=== PATIENT | male | born 1945 | race Caucasian/White ===

== ENCOUNTER 2017-04-03 05:25 | Emergency (ER) | payer MEDICARE ==
--- NOTE | 2017-04-03 06:03 | ED Physician Documentation ---
General Adult - HISTORIAN Historian: patient, other (family members) - HPI Stated Complaint: L sided weakness, L facial droop Chief Complaint: General Adult Onset: hours Timing: better Severity: mild Further Comments: yes (Pt is a 71 yo male with hx IDDM, who developed L sided weakness, unsteady gate, slurred speech, and L facial droop shortly after awakening this am. Sx were first noticed at 5:00 am. Upon arrival in ER at 5: 25 am, sx had resolved and pt stated that he was feeling perfectly well. At 5: 55 am in ER, facial droop and slightly slurred speech recurred.) - ROS CONST: no problems EYES/ENT: none CVS/RESP: none GI/: none MS/SKIN/LYMPH: none NEURO/PSYCH: other (L-sided weakness; L facial droop; difficulty with balance) - PAST HX Past History: other (IDDM, HLD) Surgeries/Procedures: other (hiatal hernia, ortho surgery) Allergies/Adverse Reactions: Allergies Allergy/AdvReac Type Severity Reaction Status Date / Time Penicillins AdvReac Nausea/Vomi Verified 04/03/17 06:08 ting Home Medications: Ambulatory Orders Medication Instructions Recorded Aspirin [Adult Low Dose Aspirin EC] 81 mg PO D 04/03/17 Atorvastatin Calcium [Atorvastatin 80 mg PO D 04/03/17 Calcium] Atorvastatin Calcium [Lipitor] 40 mg PO D 04/03/17 Ibuprofen [Advil] 200 mg PO D 04/03/17 Indapamide [Indapamide] 2.5 mg PO D 04/03/17 Insulin Detemir [Levemir Flextouch] 100 units SQ DIRECTED 04/03/17 Metformin HCl [Glucophage] 500 mg PO BID 04/03/17 Olmesartan/Hydrochlorothiazide 1 tab PO D 04/03/17 [Benicar Hct 40-12.5 mg Tablet] Omeprazole [Prilosec] 20 mg PO D 04/03/17 - SOCIAL HX Smoking History: non-smoker Alcohol Use: occasionally - FAMILY HX Family History: No - REVIEWED ASSESSMENTS Nursing Assessment Reviewed: Yes Vitals Reviewed: Yes Progress - Progress Progress: Finger stick glucose = 237 CT brain w/o contrast: Scattered bilateral white matter hypodensity is present , consistent with gliosis. Old bilateral basal ganglia lacunar infarcts noted. Mild cerebral atrophy is present. The lateral ventricles are mildly dilated. No hemorrhage or edema-producing mass. The fourth ventricle is midline. The paranasal sinuses are clear. No skull fracture. The mastoid air cells are well developed and well aerated. Impression: 1. Mild cerebral atrophy, white matter gliosis, an old bilateral basal ganglia lacunar infarcts noted. 2. No acute cerebral pathology. Transfer to [facility], Dr. Camacho. - EKG/XRAY/CT EKG: NSR (HR=80; normal EKG) ED Results Lab/Radiology - Orders Orders: ED Orders Category Date Time Status CHEST P.A.&LAT 2 VIEWS [RAD] Stat Exams 04/03/[address] BRAIN W/O CONTRAST Stat Exams 04/03/17 Ordered CBC/PLATELET/DIFF Routine Lab 04/03/17 Ordered CMP Routine Lab 04/03/17 Ordered CREATINE KINASE Routine Lab 04/03/17 Ordered PT-INR Routine Lab 04/03/17 Ordered PTT Routine Lab 04/03/17 Ordered TROPONIN I (cTnI) Stat Lab 04/03/17 Ordered EKG WITH COMPARISON Stat Ther 04/03/17 Ordered General Adult Physical Exam - PHYSICAL EXAM GENERAL APPEARANCE: no distress EENT: eye inspection normal, pharynx normal NECK: normal inspection, supple RESPIRATORY: no resp distress, chest non-tender, breath sounds normal CVS: reg rate & rhythm, heart sounds normal ABDOMEN: soft, no organomegaly, normal bowel sounds BACK: normal inspection, no CVA tenderness SKIN: warm/dry, normal color EXTREMITIES: non-tender, normal range of motion, no evidence of injury NEURO: oriented X3, motor nml, sensation nml, speech/cognition abnml (slightly slurred speech), facial droop (Left) Discharge Clincal Impression: CVA/TIA Condition: Stable Disposition: 02 XFER SHT-TRM HOSP Decision to Admit: NO Decision Time: 06:35
--- NOTE | 2017-04-03 06:23 | Diagnostic Imaging Report ---
[facility] [address] [facility].[address] 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 Findings: Scattered bilateral white matter hypodensity is present, consistent with gliosis. Old bilateral basal ganglia lacunar infarcts noted. Mild cerebral atrophy is present. The lateral ventricles are mildly dilated. No hemorrhage or edema-producing mass. The fourth ventricle is midline. The paranasal sinuses are clear. No skull fracture. The mastoid air cells are well developed and well aerated. Impression: 1. Mild cerebral atrophy , white matter gliosis, an old bilateral basal ganglia lacunar infarcts noted. 2. No acute cerebral pathology. Findings discussed with Dr. Moise in the ER at 0619 hrs central standard time. Electronically signed on Apr 03, 2017 6:19:10 AM SADDLE STITCHING MACHINE OPERATOR by: Merrill BHATIA
--- NOTE | 2017-04-03 06:31 | Diagnostic Imaging Report ---
[facility] [address] [facility].[address] [address] Report Submission Date: Apr 03, 2017 6:23:53 AM RAPID OUTSOLE STITCHER Patient Study Name: JENISE PATRICIA Date: Apr 03, 2017 6:13:49 AM RAPID OUTSOLE STITCHER Modality Type: CR Gender: M Description: CHEST : 47 Institution: [facility] Physician: LORA MOISE Chest, 2 view History: SLURRED SPEECH AND LEFT SIDED FACIAL DROOP Findings: The heart size is normal. There is atherosclerosis of the aorta. The lungs are clear. There is no pleural effusion or pneumothorax identified. The osseous structures are normal. Impression: 1. No acute pulmonary disease. Electronically signed on Apr 03, 2017 6:23:53 AM RAPID OUTSOLE STITCHER by: Merrill BHATIA
[2017-04-03 06:45] LABS: BASOPHILS % 0.6 (0.0-1.5); EOSINOPHILS % 4.8 % (0.0-6.8); MEAN CORPUSCULAR HEMOGLOBIN 32.8 pg (28.0-34.0); MEAN CORPUSCULAR VOLUME 95.1 fl (80.0-100.0); MONOCYTES % 7.8 % (0.0-11.0); NEUTROPHILS # 3.7 # k/uL (1.4-7.7)
[2017-04-03 06:56] LABS: eGFR (African) > 60; eGFR (Non-African) > 60
[2017-04-03 06:59] VITALS: BP 129/58
== END 2017-04-03 06:45 | disposition short-term general hospital (02) ==
LOC: EEVIPCON 05:25 → ED 05:25
DX: I63.9 Cerebral infarction, unspecified (principal); G45.9 Transient cerebral ischemic attack, unspecified
CPT/HCPCS: 70450; 71020; 80053; 82550; 84484; 85025; 85610; 85730; 99284; S1016

== ENCOUNTER 2018-04-11 09:39 | Outpatient (CLI) | payer MEDICARE, OTHER ==
--- NOTE | 2018-04-11 13:20 | Diagnostic Imaging Report ---
ALCIDES URRUTIA [facility] [address] [facility] [address] [address] Report Submission Date: Apr 11, 2018 10:59:49 AM REFRIGERATING OILER Patient Study Name: JENISE PATRICIA Date: Apr 11, 2018 10:06:55 AM REFRIGERATING OILER Modality Type: US Gender: M Description: [facility] : 47 Institution: [facility] Physician: ALCIDES URRUTIA Examination: Ultrasound right vein History: Calf discomfort Findings: Sonographic evaluation of the right lower extremity venous system from the groin to the popliteal fossa inclusive. Normal compressibility. No luminal filling defect. Normal waveforms and response to augmentation. No popliteal region fluid collection. Within the calf radius is a large complex fluid structure measuring 18.1 x 2.8 x 5.4 cm. Impression: No evidence for deep venous thrombosis. Large complex fluid collection in the region of the calf - possible hematoma. Correlate with any history of trauma. Electronically signed on Apr 11, 2018 10:59:49 AM REFRIGERATING OILER by: Ezio BHATIA
== END 2018-04-11 09:40 ==
LOC: RAD 09:39
PROVIDERS: ATTEND Family Medicine
DX: M79.89 Other specified soft tissue disorders (principal)
CPT/HCPCS: 93971